=== PATIENT | female | born 1950 | race Caucasian/White ===

== ENCOUNTER 2017-04-25 17:47 | Emergency (ER) | payer BC ==
[~2017-04-25] VITALS: Ht 170.2 cm; Wt 68.0 kg
[2017-04-25 19:48] LABS: HEMATOCRIT 41.3 % (36.0-46.0); HEMOGLOBIN 13.5 G/DL (11.9-15.5); MCHC 32.7 G/DL (30.0-36.0); MCV 82.6 FL (83-99); PLATELET COUNT 336 K/uL (156-360); RBC DIS.WIDTH-CV 13.2 % (11.8-14.6); RBC DIS.WIDTH-SD 39.1 % (39-53); WHITE BLOOD COUNT 6.7 K/uL (4.1-10.2)
[2017-04-25 19:57] LABS: ALBUMIN 4.4 g/dL (3.2-4.8); CHLORIDE 104 mEq/L (99-109); POTASSIUM 4.1 mEq/L (3.7-5.4); SODIUM 141 mEq/L (136-147)
[2017-04-25 19:59] LABS: GLUCOSE 103 mg/dL (70-99)
[2017-04-25 20:01] LABS: TOTAL BILIRUBIN 0.2 mg/dL (0.0-1.0)
[2017-04-25 20:03] LABS: ALKALINE PHOSPHATASE 77 IU/L (3-129); CREATININE 0.8 mg/dL (0.6-1.3); GFR ESTIMATE (CALCULATED) > 59 mL/min/
[2017-04-25 20:04] LABS: UREA NITROGEN (BUN) 15 mg/dL (9-23)
[2017-04-25 20:05] LABS: AST (GOT) 22 IU/L (2-34)
[2017-04-25 20:06] LABS: ALT (GPT) 25 IU/L (3-49)
[2017-04-26 00:17] LABS: APPEARANCE CLEAR ((CLEAR)); BILIRUBIN NEGATIVE; BLOOD NEGATIVE; COLOR YELLOW ((YELLOW)); GLUCOSE (STRIP) NEGATIVE; KETONES 5; LEUKOCYTES LARGE; NITRITE NEGATIVE; PROTEIN (STRIP) NEGATIVE; SPECIFIC GRAVITY 1.018 (1.000-1.030)
[2017-04-26 00:49] LABS: AMYLASE 43 IU/L (1-118)
[2017-04-26 00:58] LABS: LIPASE 22 U/L (1.0-51.0)
[2017-04-26 01:02] LABS: EPITHELIAL CELLS 1+ /HPF; RED BLOOD CELLS 0-5 /HPF (0-5)
[2017-04-26 01:03] LABS: BACTERIA 1+ /HPF; MUCUS 3+ /LPF; UCUL ADDED? YES
[2017-04-26 01:20] LABS: TROP-I INTERPRETATION NEGATIVE; TROPONIN-I < 0.01 ng/mL (0.0-0.30)
[2017-04-26] MEDS ORDERED: ZOFRAN ODT4 MG PO (01:58)
[2017-04-26] MEDS ORDERED: NAPROSYN500 MG PO (01:58)
[2017-04-26] MEDS ORDERED: CIPRO500 MG PO (01:58)
[2017-04-26 02:12] VITALS: BP 153/70
== END 2017-04-26 02:13 | disposition home or self-care (01) ==
LOC: EME 17:47
PROVIDERS: Physician Assistant
DX: R07.89 Other chest pain (principal); K86.89 Other specified diseases of pancreas; K80.20 Calculus of gallbladder without cholecystitis without obstruction
CPT/HCPCS: 71046; 74176; 80053; 81003; 82150; 83690; 84484; 85027; 87086; 93005; 99281; 99284

== ENCOUNTER 2017-05-02 02:23 | Emergency (ER) | payer BC ==
[~2017-05-02] VITALS: Ht 157.5 cm; Wt 67.9 kg
[~2017-05-02 02:23] MED LIST: CIPRO500 MG PO; NAPROSYN500 MG PO; ZOFRAN ODT4 MG PO
[2017-05-02 02:54] LABS: HEMATOCRIT 41.5 % (36.0-46.0); HEMOGLOBIN 13.5 G/DL (11.9-15.5); MCH 26.6 PG (29.0-34.0); MCHC 32.5 G/DL (30.0-36.0); MCV 81.7 FL (83-99); PLATELET COUNT 317 K/uL (156-360); RBC DIS.WIDTH-CV 12.9 % (11.8-14.6); RBC DIS.WIDTH-SD 38.5 % (39-53); RED BLOOD COUNT 5.08 M/uL (3.80-5.20); WHITE BLOOD COUNT 4.4 K/uL (4.1-10.2)
[2017-05-02 03:08] LABS: CHLORIDE 106 mEq/L (99-109); POTASSIUM 3.5 mEq/L (3.7-5.4); SODIUM 141 mEq/L (136-147)
[2017-05-02 03:09] LABS: GLUCOSE 115 mg/dL (70-99)
[2017-05-02 03:13] LABS: CREATININE 0.9 mg/dL (0.6-1.3); GFR ESTIMATE (CALCULATED) > 59 mL/min/
[2017-05-02 03:14] LABS: UREA NITROGEN (BUN) 15 mg/dL (9-23)
[2017-05-02 03:19] LABS: TROP-I INTERPRETATION NEGATIVE; TROPONIN-I < 0.01 ng/mL (0.0-0.30)
[2017-05-02 05:30] VITALS: BP 149/73
== END 2017-05-02 05:57 | disposition home or self-care (01) ==
LOC: EME 02:23
DX: R00.2 Palpitations (principal); I10 Essential (primary) hypertension; R14.2 Eructation; R07.9 Chest pain, unspecified
CPT/HCPCS: 71046; 80048; 84484; 85027; 93005; 99281; 99284